=== PATIENT | male | born 1985 | race Caucasian/White ===

== ENCOUNTER 2018-12-18 06:53 | Emergency (ER) | payer BC ==
[~2018-12-18] VITALS: Ht 175.3 cm; Wt 83.9 kg
[2018-12-18 06:55] VITALS: BP 136/46
--- NOTE | 2018-12-18 07:02 | NUR ---
PT W/C ASSISTED TO BED 3
[2018-12-18] MEDS ORDERED: IBUP-2213 PO (07:24)
--- NOTE | 2018-12-18 07:29 | NUR ---
PT BIB FAMILY C/O LT LOW CALF/LEG PAIN S/P RUNNING ONE HOUR AGO " I HEARD A POP" PAIN 01/25, NO LOC/KO BILAT PEDAL PULSES NOTED. PT UNABLE TO WALK AT THIS TIME. HX-NONE MED-IBU NKA
--- NOTE | 2018-12-18 07:29 | NUR ---
LT LOW CALF/LEG PAIN PAIN 7/10, BILAT PEDAL PULSES-WNL 3SEC, NO DEFORMITY NOTED, WARM TO TOUCH
[2018-12-18] MEDS ORDERED: IBUPROFEN 800 MG TAB PO ONE (07:30)
--- NOTE | 2018-12-18 07:53 | NUR ---
XRAY AT BEDSIDE 07:55
--- NOTE | 2018-12-18 08:28 | NUR ---
YANIRA WRAP TO LT LEG BY EMT TRA-DYLON PMS CAP REFILL-IMM, COLOR TO LT LEG WNL.
[2018-12-18 08:45] VITALS: BP 129/55
--- NOTE | 2018-12-18 08:46 | NUR ---
Patient discharged with v/s stable. Written and verbal after care instructions given and explained. Patient alert, oriented and verbalized understanding of instructions. Ambulatory with steady gait. All questions addressed prior to discharge. ID band removed. Patient advised to follow up with PMD. Rx of IBU given. Patient educated on indication of medication including possible reaction and side effects. Opportunity to ask questions provided and answered.
== END 2018-12-18 08:46 | disposition home or self-care (01) ==
LOC: MED 06:53
DX: S86.912A Strain of unspecified muscle(s) and tendon(s) at lower leg level, left leg, initial encounter (principal); Z79.1 Long term (current) use of non-steroidal anti-inflammatories (NSAID); X50.1XXA Overexertion from prolonged static or awkward postures, initial encounter; Y93.66 Activity, soccer; Y92.39 Other specified sports and athletic area as the place of occurrence of the external cause; Y99.8 Other external cause status
CPT/HCPCS: 73590; 99283; Q0092